=== PATIENT | female | born 1985 | race Caucasian/White ===

== ENCOUNTER 2016-10-27 11:07 | Emergency (ER) | payer BC, OTHER ==
[~2016-10-27] VITALS: Ht 167.6 cm; Wt 59.0 kg
--- NOTE | 2016-10-27 12:31 | PHYS DOC ---
Past Medical History Past Medical History: No Pertinent History Past Surgical History: Other Additional Past Surgical Histo: tooth extraction Alcohol Use: None Drug Use: None Adult General Chief Complaint Chief Complaint: VAGINAL BLEEDING HPI HPI Patient is a 31 year old female who presents with vaginal bleeding for the past 3 days, gradually worsening, passing blood clots today and using 5 pads so far today. States has minimal mid lower abdominal cramping. Missed her period last month and is concerned she is . Denies f/c, n/v, diarrhea, constipation, dysuria, hematuria, vaginal discharge, lightheadedness, fatigue, dyspnea. Review of Systems Review of Systems Constitutional: Denies fever or chills [] Eyes: Denies change in visual acuity, redness, or eye pain [] HENT: Denies nasal congestion or sore throat [] Respiratory: Denies cough or shortness of breath [] Cardiovascular: No additional information not addressed in HPI [] GI: Denies nausea, vomiting, bloody stools or diarrhea [] : Denies dysuria or hematuria [] Musculoskeletal: Denies back pain or joint pain [] Integument: Denies rash or skin lesions [] Neurologic: Denies headache, focal weakness or sensory changes [] Endocrine: Denies polyuria or polydipsia [] Allergies Allergies Allergies Coded Allergies Type Severity Reaction Last Updated Verified No Known Drug Allergies 11/11/13 No Physical Exam Physical Exam Constitutional: Well developed, well nourished, no acute distress, non-toxic appearance. [] HENT: Normocephalic, atraumatic, bilateral external ears normal, oropharynx moist, nose normal. [] Eyes: PERRLA, EOMI. [] Neck: Normal range of motion, supple. [] Cardiovascular:Heart rate regular rhythm [] Lungs & Thorax: Bilateral breath sounds clear to auscultation [] Abdomen: Bowel sounds normal, soft, no tenderness. [] 3 Genitourinary: Some blood clot in vaginal vault with no blood pooling or active bleeding, closed os, no discharge or cervicitis Skin: Warm, dry, no erythema, no rash. [] Back: Normal ROM. [] Extremities: ROM intact, no edema. [] Neurologic: Alert and oriented X 3, normal motor function, normal sensory function, no focal deficits noted. [] Psychologic: Affect normal, judgement normal, mood normal. [] Current Patient Data Vital Signs Vital Signs Date Time Temp Pulse Resp B/P Pulse Ox O2 Delivery O2 Flow Rate FiO2 10/27/16 11:21 98.6 77 18 139/74 99 Room Air 98.6 Lab Values Laboratory Tests Test 10/27/16 10:53 10/27/16 12:25 POC Urine HCG, Qualitative Hcg positive (Negative) Maternal Serum HCG Beta Subunit 6526mIU/mL (0-6) H Radiology/Procedures Radiology/Procedures US OB IMPRESSION: No evidence of an IUP. An early, normal, is felt very unlikely given the quantitative hCG value. Major diagnostic considerations with center around ectopic or recent spontaneous DICTATED and SIGNED BY: ARTEM MOORE MD DATE: 10/27/16 4068 Course & Med Decision Making Course & Med Decision Making Pertinent Labs and Imaging studies reviewed. (See chart for details) HCG elevated, but beside ultrasound performed without visualization of live IUP ; formal US ordered. Formal ultrasound also does not show IUP. She is without abdominal pain. She has no further major bleeding. Discussed need for close follow up with OB for likely spontaneous ab but some concern for possible of unknown location. Strict return precautions given. She understands and agrees with plan. Dragon Disclaimer Dragon Disclaimer This electronic medical record was generated, in whole or in part, using a voice recognition dictation system. Departure Departure Impression: Primary Impression: Vaginal bleeding during , antepartum Disposition: 01 HOME, SELF-CARE Condition: STABLE Referrals: VINICIUS NOONAN MD Patient Instructions: Vaginal Bleeding During , [id number] Additional Instructions: Take tylenol as needed for pain. Follow up with your OB doctor within 2 days. Return for any concerns. Ysabel SOLORIO MD Oct 27, 2016 12:31
--- NOTE | 2016-10-27 15:08 | RAD ---
Indication with vaginal bleeding. Initially transabdominal scans were obtained. The initial transabdominal scans were supplemented with transvaginal scans. A quantitative hCG value of 6526 has been provided. No prior imaging is available. The uterus measures approximately 10 x 8 x 6 cm. The endometrium is somewhat thickened. It measures approximately 1.8 cm in greatest dimension. There is no evidence of an IUP, yolk sac or gestational sac. There is a small amount of free fluid in the pelvis. The right ovary appears unremarkable. There is likely a small physiologic cyst seen associated with the left ovary. A definite adnexal mass is not seen IMPRESSION: No evidence of an IUP. An early, normal, is felt very unlikely given the quantitative hCG value. Major diagnostic considerations with center around ectopic or recent spontaneous
[2016-10-27 15:31] VITALS: BP 127/20
== END 2016-10-27 15:48 | disposition home or self-care (01) ==
LOC: ER 11:07
DX: O46.91 Antepartum hemorrhage, unspecified, first trimester (principal); O26.91 Pregnancy related conditions, unspecified, first trimester; R10.30 Lower abdominal pain, unspecified; Z3A.00 Weeks of gestation of pregnancy not specified
CPT/HCPCS: 36415; 76801; 81025; 84702; 86900; 86901; 99285-25

== ENCOUNTER 2017-12-15 05:08 | Emergency (ER) | payer BC ==
[2017-12-15 05:44] LABS: URINE HCG POC HCG POSITIVE (Negative)
[2017-12-15 06:27] LABS: BILIRUBIN,URINE NEGATIVE (NEG); CLARITY,URINE CLEAR; COLOR,URINE YELLOW; GLUCOSE,URINE NEGATIVE (NEG); NITRITE,URINE NEGATIVE (NEG); PH,URINE 6.5; PROTEIN,URINE NEGATIVE (NEG-TRACE); UROBILINOGEN,URINE 0.2 mg/dL (0.2 mg/dL)
[2017-12-15 06:38] LABS: BACTERIA,URINE FEW /HPF (0-FEW); RBC,URINE 0 /HPF (0-2); SQUAMOUS EPITHELIAL CELL,UR MOD /LPF; WBC,URINE 0 /HPF (0-4)
== END 2017-12-15 07:26 | disposition home or self-care (01) ==
LOC: ER 05:08
DX: O26.891 Other specified pregnancy related conditions, first trimester (principal); O99.331 Smoking (tobacco) complicating pregnancy, first trimester; R10.2 Pelvic and perineal pain; R11.0 Nausea; F17.210 Nicotine dependence, cigarettes, uncomplicated; Z3A.01 Less than 8 weeks gestation of pregnancy
CPT/HCPCS: 76801; 81001; 81025; 87086; 99285-25